=== PATIENT | male | born 1990 | race Caucasian/White ===

== ENCOUNTER 2016-11-11 15:04 | Inpatient (IN) | payer MEDICAID, OTHER ==
[~2016-11-11] VITALS: Ht 185.4 cm; Wt 97.6 kg
[2016-11-11 15:14] VITALS: BP 142/72; PULSE 72; RESP 16; TEMP 98.7; O2SAT 99
[2016-11-11 16:04] LABS: AUTOMATED NEUTROPHIL # 18.4 TH/MM3 (1.8-7.7); BASOPHIL # 0.1 TH/MM3 (0-0.2); BASOPHIL % 0.3 % (0.0-2.0); HEMATOCRIT 47.7 % (39.0-51.0); HEMO FLAGS DIFF FINAL; LYMPH % 4.9 % (9.0-44.0); MEAN CELL VOLUME 87.7 FL (80.0-100.0); MEAN CORPUSCULAR HEMOGLOBIN 29.2 PG (27.0-34.0); MEAN CORPUSCULAR HGB CONC 33.3 % (32.0-36.0); MONO % 2.9 % (0.0-8.0); NEUT % 91.9 % (16.0-70.0); PLATELET COUNT 282 TH/MM3 (150-450); RED BLOOD COUNT 5.44 MIL/MM3 (4.50-5.90); RED CELL DISTRIBUTION WIDTH 13.1 % (11.6-17.2)
[2016-11-11 16:35] LABS: BICARBONATE 27.5 MEQ/L (21.0-32.0); POTASSIUM 4.1 MEQ/L (3.5-5.1)
--- NOTE | 2016-11-11 17:15 | PD ---
HPI Chief Complaint: Numbness/Tingling Time Seen by Provider: 16:56 Travel History International Travel<30 days: No Contact w/Intl Traveler<30days: No Traveled to known affect area: No History of Present Illness HPI 26-year-old male complains of left-sided facial drooping and numbness, slurred speech, left arm left leg numbness and weakness. Patient states that the symptoms started yesterday morning. Patient states that he woke up with the symptoms. Patient was seen at [facility] in [facility] yesterday. Patient states that he had x-ray of the throat and given prescription for prednisone, hydroxyzine, and famotidine. Patient states that he had persistent symptom despite the medications. Patient denies headache. Patient denies any visual change. Patient denies any neck pain. Patient denies any chest pain or shortness of breath. Patient denies abdominal pain. Patient denies a history of TIA or CVA. Patient on Suboxone for the past 3 years. Patient denies any history of alcohol or illicit drug abuse recently. [facility] Social History Tobacco Use: No Allergies-Medications (Allergen,Severity, Reaction): Coded Allergies: Penicillin (Verified Allergy, Intermediate, HIVES, 11/11/16) Reported Meds & Prescriptions Reported Meds & Active Scripts Active Reported Miralax Powder (Polyethylene Glycol 3350 Powder) 17 Gm Powd 17 Gm PO EVERY OTHER DAY Mix and dissolve one measuring cap-ful (17 grams) in water or juice. Ranitidine (Ranitidine HCl) 150 Mg Tab 150 Mg PO DAILY Suboxone Sublingual Film (Buprenorphine-Naloxone Sublingual Film) 8-2 Mg Film 1 Film SL DAILY@0600 PRN Unique ID number required: Review of Systems General / Constitutional: No: Fever Eyes: No: Visual changes HENT: No: Headaches Cardiovascular: No: Chest Pain or Discomfort Respiratory: No: Shortness of Breath Gastrointestinal: No: Abdominal Pain Genitourinary: No: Dysuria Musculoskeletal: Positive: Weakness, No: Pain Skin: No Rash Neurologic: Positive: Paresthesia, No: Weakness Psychiatric: No: Depression Endocrine: No: Polydipsia Hematologic/Lymphatic: No: Easy Bruising Physical Exam Narrative GENERAL: Well-nourished, well-developed patient. SKIN: Focused skin assessment warm/dry. HEAD: Normocephalic. EYES: No scleral icterus. No injection or drainage. Pupils 3 mm equal reactive. NECK: Supple, trachea midline. No JVD or lymphadenopathy. No meningismus CARDIOVASCULAR: Regular rate and rhythm without murmurs, gallops, or rubs. RESPIRATORY: Breath sounds equal bilaterally. No accessory muscle use. GASTROINTESTINAL: Abdomen soft, non-tender, nondistended. MUSCULOSKELETAL: No cyanosis, or edema. BACK: Nontender without obvious deformity. No CVA tenderness. Neurologic exam: Patient has drooping on the left facial area but not involve the forehead. Patient had decrease in light touch sensation the left side of face. Patient has mild weakness of the left arm and left leg. Patient has mild decrease in light touch sensation left arm left leg. Deep tendon reflexes 2+ and equal. Negative Babinski. Data Data Last Documented VS Vital Signs Date Time Temp Pulse Resp B/P Pulse Ox O2 Delivery O2 Flow Rate FiO2 11/11/16 18:27 82 18 152/68 97 Nasal Cannula 2 11/11/16 15:14 98.7 Orders Complete Blood Count With Diff (11/11/16 15:30) Basic Metabolic Panel (Bmp) (11/11/16 15:30) Prothrombin Time / Inr (Pt) (11/11/16 15:30) Electrocardiogram (11/11/16 17:06) C-Reactive Protein (Crp) (11/11/16 17:06) Hepatic Functional Panel (11/11/16 17:06) Urinalysis - C+S If Indicated (11/11/16 17:06) Westergren Sedimentation Rate (11/11/16 17:06) Chest, Single Ap (11/11/16 17:06) Ct Brain W/O Iv Contrast(Rout) (11/11/16 17:06) Iv Access Insert/Monitor (11/11/16 17:06) Ecg Monitoring (11/11/16 17:06) Oxygen Administration (11/11/16 17:06) Oximetry (11/11/16 17:06) Drug Screen, Random Urine (11/11/16 17:06) Sodium Chlor 0.9% 1000 Ml Inj (Ns 1000 M (11/11/16 17:15) Aspirin (Aspirin) (11/11/16 18:30) Mri Brain W&W/O Contrast (11/11/16 18:32) Mra Brain W/O Contrast (Cow) (11/11/16 18:32) Mra Carotids W Contrast (11/11/16 18:32) Consult Neurology (11/11/16 ) (Hub Use Only)Inp Phy Cons/Ref (11/11/16 ) Admit Order (Ed Use Only) (11/11/16 19:19) Admit To Inpatient (11/11/16 ) Nih Stroke Scale - Nihss .On admission and discharge (11/11/16 19:18) Consult Pt Eval & Treat (11/11/16 19:18) Case Management Consult (11/11/16 ) Activity Bed Rest (11/11/16 19:18) Nursing Bedside Swallow Assess .ONCE (11/11/16 19:18) Diet Npo (11/12/16 Breakfast) Hemoglobin (Hgb) A1c (11/11/16 19:18) Lipid Profile (11/12/16 06:00) Us Carotid Arteries Comp Bilat (11/11/16 ) ^ Hold Medication (11/11/16 19:18) Consult Rehab Medicine (11/11/16 19:18) Rental Sales Associate / Telemetry [email or web address] (11/11/16 19:18) Consult Stoke Navigator (11/11/16 ) Inpatient Certification (11/11/16 ) Labs Laboratory Tests Test 11/11/16 11/11/16 11/11/16 15:34 18:00 18:30 White Blood Count 20.0 TH/MM3 Red Blood Count 5.44 MIL/MM3 Hemoglobin 15.9 GM/DL Hematocrit 47.7 % Mean Corpuscular Volume 87.7 FL Mean Corpuscular Hemoglobin 29.2 PG Mean Corpuscular Hemoglobin 33.3 % Concent Red Cell Distribution Width 13.1 % Platelet Count 282 TH/MM3 Mean Platelet Volume 8.5 FL Neutrophils (%) (Auto) 91.9 % Lymphocytes (%) (Auto) 4.9 % Monocytes (%) (Auto) 2.9 % Eosinophils (%) (Auto) 0.0 % Basophils (%) (Auto) 0.3 % Neutrophils # (Auto) 18.4 TH/MM3 Lymphocytes # (Auto) 1.0 TH/MM3 Monocytes # (Auto) 0.6 TH/MM3 Eosinophils # (Auto) 0.0 TH/MM3 Basophils # (Auto) 0.1 TH/MM3 CBC Comment DIFF FINAL Differential Comment Erythrocyte Sedimentation Rate 1 mm/hr Prothrombin Time 11.0 SEC Prothromb Time International 1.0 RATIO Ratio Sodium Level 138 MEQ/L Potassium Level 4.1 MEQ/L Chloride Level 102 MEQ/L Carbon Dioxide Level 27.5 MEQ/L Anion Gap 9 MEQ/L Blood Urea Nitrogen 16 MG/DL Creatinine 0.99 MG/DL Estimat Glomerular Filtration 91 ML/MIN Rate Random Glucose 107 MG/DL Calcium Level 9.7 MG/DL Urine Color YELLOW Urine Turbidity CLEAR Urine pH 6.5 Urine Specific [place] 1.026 Urine Protein TRACE mg/dL Urine Glucose (UA) NEG mg/dL Urine Ketones NEG mg/dL Urine Occult Blood NEG Urine Nitrite NEG Urine Bilirubin NEG Urine Urobilinogen LESS THAN 2.0 MG/DL Urine Leukocyte Esterase NEG Urine RBC LESS THAN 1 /hpf Urine WBC LESS THAN 1 /hpf Urine Mucus FEW /lpf Microscopic Urinalysis Comment CULT NOT INDICATED Urine Opiates Screen NEG Urine Barbiturates Screen NEG Urine Amphetamines Screen NEG Urine Benzodiazepines Screen NEG Urine Cocaine Screen NEG Urine Cannabinoids Screen NEG Total Bilirubin 1.2 MG/DL Direct Bilirubin 0.2 MG/DL Indirect Bilirubin 1.0 MG/DL Aspartate Amino Transf 10 U/L (AST/SGOT) Alanine Aminotransferase 19 U/L (ALT/SGPT) Alkaline Phosphatase 54 U/L C-Reactive Protein LESS THAN 0.29 MG/DL Total Protein 6.8 GM/DL Albumin 3.6 GM/DL [facility] Medical Decision Making Medical Screen Exam Complete: Yes Emergency Medical Condition: Yes Interpretation(s) Last Impressions Chest X-Ray 11/11/16 1706 Signed Impressions: Service Date/Time: Friday, November 11, 2016 17:03 - CONCLUSION: No acute disease. Aris Rios Jr., MD [address] scan of the brain shows low density right frontal lobe concerning for acute infarct. CBC with WBC 20,000. 91 neutrophil. Patient on steroid. BMP within normal limit. Differential Diagnosis Differential diagnosis including TIA, CVA, neuropathy. Narrative Course 26-year-old male with left-sided facial, left arm left leg numbness and weakness. Symptoms started yesterday morning. Normal saline solution 70 cc an hour. Head of bed flat. O2 2 L nasal cannula. Aspirin 325 mg by mouth given. Diagnosis Primary Impression: Acute CVA (cerebrovascular accident) Admitting Information Admitting Physician Requests: Admit Richie Boudreaux MD Nov 11, 2016 17:15
--- NOTE | 2016-11-11 17:41 | RADRPT ---
EXAM DATE/TIME: 11/11/2016 17:03 [facility] COMPARISON: No previous studies available for comparison. INDICATIONS : Short of breath. Left side motor function impaired. Minor headache. MEDICAL HISTORY : None. SURGICAL HISTORY : None. ENCOUNTER: Initial ACUITY: 1 day PAIN SCORE: 0/10 LOCATION: Bilateral chest FINDINGS: A single view of the chest demonstrates the lungs to be symmetrically aerated without evidence of mas s, infiltrate or effusion. The cardiomediastinal contours are unremarkable. Osseous structures are intact. CONCLUSION: No acute disease. Aris Rios Jr., MD on November 11, 2016 at 17:39 Board Certified Radiologist. This report was verified electronically.
--- NOTE | 2016-11-11 18:06 | RADRPT ---
EXAM DATE/TIME: 11/11/2016 17:45 [facility] COMPARISON: No previous studies available for comparison. INDICATIONS : Left sided numbness and slurred speech. RADIATION DOSE: 35.79 CTDIvol (mGy) MEDICAL HISTORY : None SURGICAL HISTORY : None. ENCOUNTER: Initial ACUITY: 1 day PAIN SCALE: 0/10 LOCATION: Bilateral head TECHNIQUE: Multiple contiguous axial images were obtained of the head. Using automated exposure control and adj ustment of the mA and/or kV according to patient size, radiation dose was kept as low as reasonably a chievable to obtain optimal diagnostic quality images. DICOM format image data is available electro nically for review and comparison. FINDINGS: CEREBRUM: Areas of low-density in the right frontal lobe which extends to the cortex, could be acute infarction . There is mass effect. The ventricles are normal for age. No evidence of midline shift, mass lesion , hemorrhage or acute infarction. No extra-axial fluid collections are seen. POSTERIOR FOSSA: The cerebellum and brainstem are intact. The 4th ventricle is midline. The cerebellopontine angle i s unremarkable. EXTRACRANIAL: The visualized portion of the orbits is intact. SKULL: The calvaria is intact. No evidence of skull fracture. CONCLUSION: 1. There is low-density in the right frontal lobe concerning for acute infarction. Contrasted MRI rec ommended. Amrit Du MD on November 11, 2016 at 18:03 Board Certified Radiologist. This report was verified electronically.
[2016-11-11 18:27] VITALS: BP 152/68; PULSE 82; RESP 18; O2SAT 97
[2016-11-11] MEDS ORDERED: ASPIRIN 325 MG TAB PO ONE (18:30)
[2016-11-11 18:43] LABS: BLOOD, URINE NEG (NEG); COMMENT (UR) CULT NOT INDICATED; CULTURE IF INDICATED CULT NOT INDICATED; GLUCOSE,URINE NEG (NEG); KETONE, URINE NEG (NEG); MUCUS URINE FEW /lpf (OCC); NITRITE,URINE NEG (NEG); PH, URINE 6.5 (5.0-8.5); URINE COLOR YELLOW (YELLW/STRAW)
[2016-11-11 18:53] LABS: AMPHETAMINE, URINE NEG (NEG); BARBITURATES, URINE NEG (NEG); COCAINE, URINE NEG (NEG)
[2016-11-11 19:06] LABS: ALT (GPT) 19 U/L (12-78); AST (GOT) 10 U/L (15-37)
[2016-11-11 19:09] LABS: ALKALINE PHOSPHATASE 54 U/L (45-117); TOTAL BILIRUBIN ADULT 1.2 MG/DL (0.2-1.0)
[2016-11-11] MEDS ORDERED: SODIUM CHLORIDE 0.9% FLUSH 10 ML FLUSH IV FLUSH PRN (19:30)
--- NOTE | 2016-11-11 19:49 | RADRPT ---
EXAM DATE/TIME: 11/11/2016 19:20 [facility] COMPARISON: No previous studies available for comparison. INDICATIONS : CVA. Left side numbness and weakness. MEDICAL HISTORY : None. SURGICAL HISTORY : None. ENCOUNTER: Subsequent ACUITY: 2 day PAIN SCORE: 3/10 LOCATION: cranial Please note a normal MRA of the brain does not entirely exclude the possibility of a small aneurysm, nor the possibility of distal intracranial vessel disease. TECHNIQUE: 3D time of flight MRA was performed. Source images, multiplanar STS MIP, and 3D volume MIP reconstru ctions were reviewed. FINDINGS: There is excellent visualization of the major intracranial arteries out to the second-order branch ve ssels. There is no evidence for aneurysm, vessel truncation or stenosis, and no evidence for vascula r malformation. Tiny anterior communicating artery. Hypoplastic posterior communicating arteries. Erika tebrobasilar junction normal. Basilar artery normal. CONCLUSION: 1. No large vessel stenosis or aneurysm. 2. Normal variants. Amrit Du MD on November 11, 2016 at 19:46 Board Certified Radiologist. This report was verified electronically.
[2016-11-11] MEDS ORDERED: GADODIAMIDE PF 287 MG/ML 20 ML VIAL (for RAD MRI) IV ONE (20:09)
[2016-11-11 20:17] VITALS: PULSE 62
--- NOTE | 2016-11-11 20:27 | RADRPT ---
EXAM DATE/TIME: 11/11/2016 19:20 [facility] COMPARISON: No previous studies available for comparison. INDICATIONS : CVA. Left side numbness and weakness. CONTRAST: 20 cc Omniscan (gadodiamide) IV MEDICAL HISTORY : None. SURGICAL HISTORY : None. ENCOUNTER: Subsequent ACUITY: 2 day PAIN SCORE: 3/10 LOCATION: cranial TECHNIQUE: Multiplanar, multisequence MRI of the brain was performed both prior to and following the administrat ion of paramagnetic contrast. FINDINGS: CEREBRUM: High flair abnormality right frontal lobe extensive cortex. The ventricles are normal for age. No ev idence of midline shift, mass lesion, hemorrhage or acute infarction. No extraaxial fluid collection s are seen. The pituitary gland and suprasellar cistern are normal in configuration. WHITE MATTER: No significant signal abnormalities are seen in the white matter. POSTERIOR FOSSA: The cerebellum and brainstem are intact. The 4th ventricle is midline. The cerebellopontine angle is unremarkable. The cerebellar tonsils are normal in position. DIFFUSION IMAGING: There is restricted diffusion in the right frontal lobe consistent with acute infarction. EXTRACRANIAL: The visualized portions of the orbits and paranasal sinuses are unremarkable. POST-CONTRAST: No abnormal areas of parenchymal or dural enhancement. No evidence of blood-brain barrier breakdown. CONCLUSION: Acute infarct right frontal lobe. No midline shift or mass effect. Amrit Du MD on November 11, 2016 at 20:24 Board Certified Radiologist. This report was verified electronically.
--- NOTE | 2016-11-11 20:36 | RADRPT ---
EXAM DATE/TIME: 11/11/2016 19:20 [facility] COMPARISON: No previous studies available for comparison. INDICATIONS : Stroke. Left side numbness and weakness. CONTRAST: 20 cc Omniscan (gadodiamide) IV MEDICAL HISTORY : None. SURGICAL HISTORY : None. ENCOUNTER: Subsequent ACUITY: 2 day PAIN SCORE: 3/10 LOCATION: cranial Percent stenosis is calculated using the diameter of the stenotic region over the diameter of the nor mal distal internal carotid artery. TECHNIQUE: Bolus infused MRA of the extracranial circulation was performed using a neurovascular coil. Post pro cessing was performed including rotating subvolume maximum intensity projections of each carotid irma ry, rotating full volume maximum intensity projections of both carotid arteries, sagittal and coronal sliding thin slab reformations of each carotid artery, and left oblique sliding thin slab reformatio n through the aortic arch to include the origin of the arch branch vessels. FINDINGS: AORTIC ARCH: There is a three vessel origin of the great vessels from the aorta. No evidence of ostial narrowing. RIGHT CAROTID: The common carotid artery is intact. The carotid bulb has a normal configuration without ulceration or narrowing. The internal carotid artery lumen is smooth without stenosis. The external carotid ar kristan is intact. LEFT CAROTID: The common carotid artery is intact. The carotid bulb has a normal configuration without ulceration or narrowing. The internal carotid artery lumen is smooth without stenosis. The external carotid ar kristan is intact. VERTEBRALS: The vertebral arteries have a symmetric diameter. No stenotic lesions are seen. CONCLUSION: Normal carotid arteries. Amrit Du MD on November 11, 2016 at 20:33 Board Certified Radiologist. This report was verified electronically.
[2016-11-11] MEDS: SODIUM CHLORIDE 0.9% FLUSH 10 ML FLUSH IV FLUSH SCH (21:00)
[2016-11-11 22:00] VITALS: BP 117/56; PULSE 62; RESP 16; O2SAT 100
[2016-11-11] MEDS: SODIUM CHLOR 0.9% 1000 ML INJ 1,000 ML IV SCH (22:00)
[2016-11-11 22:11] VITALS: BP 118/73; PULSE 60; O2SAT 100
[2016-11-11] MEDS ORDERED: SUBO8MIS SL (23:24)
[2016-11-11] MEDS ORDERED: RANI150T PO (23:25)
[2016-11-11] MEDS ORDERED: MIRA3350 PO (23:26)
--- NOTE | 2016-11-11 23:41 | RADRPT ---
EXAM DATE/TIME: 11/11/2016 22:38 [facility] COMPARISON: MRA CAROTIDS W CONTRAST, November 11, 2016, 19:20. INDICATIONS : Cerebrovascular accident. MEDICAL HISTORY : Left sided numbness. Slurred speech. Left sided weekness. SURGICAL HISTORY : None. ENCOUNTER: Initial ACUITY: 2 days PAIN SCORE: 0/10 LOCATION: Bilateral neck PEAK SYSTOLIC VELOCITIES (cm/sec): ICA/CCA RATIO: Right: 1.3 Left: 0.9 ICA: Right: 153.0 Left: 100.3 CCA: Right: 116.0 Left: 109.3 ECA: Right: 86.5 Left: 98.3 VERTEBRAL: Right: 66.1 antegrade Left: 44.9 antegrade Elevated flow velocities and ICA/CCA ratios have been found to correlate with increased degrees of vessel stenosis, calculated as percentage of diameter relative to a normal segment of distal ICA/CCA FINDINGS: RIGHT CAROTID: No significant stenosis is visualized. The waveforms are within normal limits. LEFT CAROTID: No significant stenosis is visualized. The waveforms are within normal limits. VERTEBRAL ARTERIES: Antegrade flow is seen in both vertebral arteries. MISCELLANEOUS: None. CONCLUSION: 1. Mildly elevated right internal carotid artery velocities. However, visually no stenosis is present and the earlier MRI demonstrates a normal appearance to the internal carotid artery. 2. Left internal carotid artery is normal without stenosis. 3. There is antegrade flow in both vertebral arteries. Yariel Miranda MD on November 11, 2016 at 23:37 Board Certified Radiologist. This report was verified electronically.
[2016-11-12] VITALS (8 sets, daily range): BP systolic 101–128; BP diastolic 54–71; PULSE 48–70; RESP 16–18; TEMP 97.3–98.4; O2SAT 97–100
[2016-11-12] MEDS: ASPIRIN EC 325 MG TABEC PO SCH (08:55)
[2016-11-12] MEDS: SODIUM CHLORIDE 0.9% FLUSH 10 ML FLUSH IV FLUSH SCH (08:55)
[2016-11-12] MEDS: SODIUM CHLOR 0.9% 1000 ML INJ 1,000 ML IV SCH (08:56)
--- NOTE | 2016-11-12 09:08 | HHI.HP ---
[facility] Service [facility] Primary Care Physician No Primary Care Physician Admission Diagnosis acute CVA Diagnoses: Chief Complaint: Left-sided numbness and weakness Travel History International Travel<30 Days: No Contact w/Intl Traveler <30 Da: No Traveled to Known Affected Are: No History of Present Illness 26-year-old male with a past medical history of tobacco dependence and narcotic dependence now on Suboxone who presented with left-sided numbness and weakness on Friday. Patient stated that symptoms did not improve so he went to the emergency department yesterday. Patient is a poor historian and does not give much of a history. He denies any other symptoms. Patient stated that numbness has improved drastically and weakness is mild at the moment. He did stated that his cousin at a young age had a stroke. Deny any family history of being hypercoagulable. Review of Systems Constitutional: DENIES: Diaphoretic episodes, Fatigue, Fever, Weight gain, Weight loss, Chills, Dizziness, Change in appetite, Night Sweats Endocrine: DENIES: Heat/cold intolerance, Polydipsia, Polyuria, Polyphagia Eyes: DENIES: Blurred vision, Diplopia, Eye inflammation, Eye pain, Vision loss , Photosensitivity, Double Vision Ears, nose, mouth, throat: DENIES: Tinnitus, Hearing loss, Vertigo, Nasal discharge, Oral lesions, Throat pain, Hoarseness, Ear Pain, Running Nose, Epistaxis, Sinus Pain, Toothache, Odynophagia Respiratory: DENIES: Apneas, Cough, Snoring, Wheezing, Hemoptysis, Sputum production, Shortness of breath Cardiovascular: DENIES: Chest pain, Palpitations, Syncope, Dyspnea on Exertion , PND, Lower Extremity Edema, Orthopnea, Claudication Gastrointestinal: DENIES: Abdominal pain, Black stools, Bloody stools, Constipation, Diarrhea, Nausea, Vomiting, Difficulty Swallowing, Anorexia Genitourinary: DENIES: Sexual dysfunction, Urinary frequency, Urinary incontinence, Urgency, Hematuria, Dysuria, Nocturia, Penile Discharge, Testicular Pain, Testicular Swelling Musculoskeletal: DENIES: Joint pain, Muscle aches, Stiffness, Joint Swelling, Back pain, Neck pain Integumentary: DENIES: Abnormal pigmentation, Nail changes, Pruritus, Rash Hematologic/lymphatic: DENIES: Bruising, Lymphadenopathy Immunologic/allergic: DENIES: Eczema, Urticaria Neurologic: COMPLAINS OF: Localized weakness, Paresthesias, DENIES: Abnormal gait, Headache, Seizures, Speech Problems, Tremor, Poor Balance Psychiatric: DENIES: Anxiety, Confusion, Mood changes, Depression, Hallucinations, Agitation, Suicidal Ideation, Homicidal Ideation, Delusions Past Family Social History Past Medical History Narcotic dependence GERD Past Surgical History Denying past surgical history. Reported Medications Miralax Powder (Polyethylene Glycol 3350 Powder) 17 Gm Powd 17 Gm PO EVERY OTHER DAY Mix and dissolve one measuring cap-ful (17 grams) in water or juice. Ranitidine (Ranitidine HCl) 150 Mg Tab 150 Mg PO DAILY Suboxone Sublingual Film (Buprenorphine-Naloxone Sublingual Film) 8-2 Mg Film 1 Film SL DAILY@0600 PRN Unique ID number required: Allergies: Coded Allergies: Penicillin (Verified Allergy, Intermediate, HIVES, 11/11/16) Active Ordered Medications Current Medications Sodium Chloride (NS 1000 ml Inj) 1,000 ml @ 70 mls/hr [id number] IV Last administered on 11/11/16 22:00; Start 11/11/16 at 17:15 Aspirin (Aspirin) 325 mg ONCE ONCE PO Last administered on 11/11/16 21:55; Start 11/11/16 at 18:30; Stop 11/11/16 at 18:31; Status DC Sodium Chloride (NS Flush) 2 ml BID IV FLUSH ; Start 11/11/16 at 21:00 Sodium Chloride (NS Flush) 2 ml UNSCH PRN IV FLUSH FLUSH AFTER USING IV ACCESS ; Start 11/11/16 at 19:30 Aspirin (Ecotrin Ec) 325 mg DAILY PO ; Start 11/12/16 at 09:00 Gadodiamide (Omniscan Pf Inj) 20 ml STK-MED ONCE IV Last administered on 20:09; Start 11/11/16 at 20:09; Stop 11/11/16 at 20:10; Status DC Family History Grandmother had a history of lung cancer. Grandfather had a history of unknown cancer. Cousin with a history of a stroke at a young age. Social History Patient was at home with his mother. Denied any alcohol use. Smokes half a pack a day for about 10 years. Patient has a history of narcotic-dependent dependence and is on Suboxone. Denied any history of IV drug use. Physical Exam Vital Signs Vital Signs Date Time Temp Pulse Resp B/P Pulse Ox O2 Delivery O2 Flow Rate FiO2 11/12/16 08:25 98.4 51 16 114/57 98 11/12/16 04:00 97.7 58 18 101/58 97 11/12/16 00:00 97.8 56 18 128/71 100 11/11/16 22:11 60 100 Room Air 11/11/16 22:11 55 18 118/73 100 11/11/16 22:00 62 16 117/56 100 Room Air 11/11/16 20:17 62 11/11/16 18:27 82 18 152/68 97 Nasal Cannula 2 11/11/16 17:20 98 Nasal Cannula 2 11/11/16 15:14 98.7 72 16 142/72 99 Room Air Physical Exam GENERAL: This is a well-nourished, well-developed patient, in no apparent distress. SKIN: No rashes, ecchymoses or lesions. Cool and dry. HEAD: Atraumatic. Normocephalic. No temporal or scalp tenderness. EYES: Pupils equal round and reactive. Extraocular motions intact. No scleral icterus. No injection or drainage. ENT: Nose without bleeding, purulent drainage or septal hematoma. Throat without erythema, tonsillar hypertrophy or exudate. Uvula midline. Airway patent. NECK: Trachea midline. No JVD or lymphadenopathy. Supple, nontender, no meningeal signs. CARDIOVASCULAR: Regular rate and rhythm without murmurs, gallops, or rubs. RESPIRATORY: Clear to auscultation. Breath sounds equal bilaterally. No wheezes , rales, or rhonchi. GASTROINTESTINAL: Abdomen soft, non-tender, nondistended. No hepato-splenomegaly , or palpable masses. No guarding. MUSCULOSKELETAL: Extremities without clubbing, cyanosis, or edema. No joint tenderness, effusion, or edema noted. No calf tenderness. Negative Homans sign bilaterally. NEUROLOGICAL: Awake and alert. Cranial nerves II through XII intact. Motor and sensory grossly within normal limits. Five out of 5 muscle strength in all muscle groups. Normal speech. Laboratory Laboratory Tests Test 11/11/16 11/11/16 11/11/16 15:34 18:00 18:30 White Blood Count 20.0 Red Blood Count 5.44 Hemoglobin 15.9 Hematocrit 47.7 Mean Corpuscular Volume 87.7 Mean Corpuscular Hemoglobin 29.2 Mean Corpuscular Hemoglobin 33.3 Concent Red Cell Distribution Width 13.1 Platelet Count 282 Mean Platelet Volume 8.5 Neutrophils (%) (Auto) 91.9 Lymphocytes (%) (Auto) 4.9 Monocytes (%) (Auto) 2.9 Eosinophils (%) (Auto) 0.0 Basophils (%) (Auto) 0.3 Neutrophils # (Auto) 18.4 Lymphocytes # (Auto) 1.0 Monocytes # (Auto) 0.6 Eosinophils # (Auto) 0.0 Basophils # (Auto) 0.1 CBC Comment DIFF FINAL Differential Comment Erythrocyte Sedimentation Rate 1 Prothrombin Time 11.0 Prothromb Time International 1.0 Ratio Sodium Level 138 Potassium Level 4.1 Chloride Level 102 Carbon Dioxide Level 27.5 Anion Gap 9 Blood Urea Nitrogen 16 Creatinine 0.99 Estimat Glomerular Filtration 91 Rate Random Glucose 107 Calcium Level 9.7 Urine Color YELLOW Urine Turbidity CLEAR Urine pH 6.5 Urine Specific [place] 1.026 Urine Protein TRACE Urine Glucose (UA) NEG Urine Ketones NEG Urine Occult Blood NEG Urine Nitrite NEG Urine Bilirubin NEG Urine Urobilinogen LESS THAN 2.0 Urine Leukocyte Esterase NEG Urine RBC LESS THAN 1 Urine WBC LESS THAN 1 Urine Mucus FEW Microscopic Urinalysis Comment CULT NOT INDICATED Urine Opiates Screen NEG Urine Barbiturates Screen NEG Urine Amphetamines Screen NEG Urine Benzodiazepines Screen NEG Urine Cocaine Screen NEG Urine Cannabinoids Screen NEG Total Bilirubin 1.2 Direct Bilirubin 0.2 Indirect Bilirubin 1.0 Aspartate Amino Transf 10 (AST/SGOT) Alanine Aminotransferase 19 (ALT/SGPT) Alkaline Phosphatase 54 C-Reactive Protein LESS THAN 0.29 Total Protein 6.8 Albumin 3.6 Result Diagram: 11/11/16 1534 11/11/16 1534 Imaging Last Impressions Neck Magnetic Resonance Angiography 11/11/161831 Signed Impressions: Service Date/Time: Friday, November 11, 2016 19:20 - CONCLUSION: Normal carotid arteries. Amrit Du MD Head Magnetic Resonance Angiography 11/11/161831 Signed Impressions: Service Date/Time: Friday, November 11, 2016 19:20 - CONCLUSION: 1. No large vessel stenosis or aneurysm. 2. Normal variants. Amrit Du MD Brain MRI 11/11/16 1832 Signed Impressions: Service Date/Time: Friday, November 11, 2016 19:20 - CONCLUSION: Acute infarct right frontal lobe. No midline shift or mass effect. Amrit Du MD Head CT 11/11/16 1706 Signed Impressions: Service Date/Time: Friday, November 11, 2016 17:45 - CONCLUSION: 1. There is low-density in the right frontal lobe concerning for acute infarction. Contrasted MRI recommended. Amrit Du MD Chest X-Ray 11/11/16 1706 Signed Impressions: Service Date/Time: Friday, November 11, 2016 17:03 - CONCLUSION: No acute disease. Aris Rios Jr., MD Carotid Artery Ultrasound 11/11/16 0000 Signed Impressions: Service Date/Time: Friday, November 11, 2016 22:38 - CONCLUSION: 1. Mildly elevated right internal carotid artery velocities. However, visually no stenosis is present and the earlier MRI demonstrates a normal appearance to the internal carotid artery. 2. Left internal carotid artery is normal without stenosis. 3. There is antegrade flow in both vertebral arteries. Yariel Miranda MD Assessment and Plan Problem List: (1) Acute CVA (cerebrovascular accident) ICD Code: I63.9 Status: Acute Assessment and Plan 26-year-old male with past medical history of tobacco dependence and narcotic dependence who presented with left-sided weakness and numbness Left-sided weakness and numbness -CT scan suggests possible CVA. -Patient was admitted to the neuro floor with a CVA workup. Neurologist consulted. -MRI of the head showed acute infarct right frontal lobe. No midline shift or mass effect. -Patient was put on CVA protocol. Allow permissive hypertension. -MRA, carotid ultrasound negative. Pending 2-D echo. Pending lipid panel and hemoglobin A1c. -Due to patients age will get a hypoechoic oval workup and urine drug screen. -Pending neurologist consult. Acute infarct right frontal lobe -See management as above. DVT prophylaxis -SCD Discussed Condition With patient Physician Certification 2 Midnight Certification Type: Admission for Inpatient Services Order for Inpatient Services The services are ordered in accordance with Medicare regulations or non- Medicare payer requirements, as applicable. In the case of services not specified as inpatient-only, they are appropriately provided as inpatient services in accordance with the 2-midnight benchmark. Estimated LOS (days): 2 2 days is the estimated time the patient will need to remain in the hospital, assuming treatment plan goals are met and no additional complications. Post-Hospital Plan: Estrella Snyder MD Nov 12, 2016 09:08
[2016-11-12] MEDS ORDERED: [UNRECOGNIZED DRUG - OTHER] SL PRN (09:45)
[2016-11-12] MEDS: FAMOTIDINE 20 MG TAB PO SCH ×2 (10:45→20:36)
[2016-11-12 10:58] LABS: AMPHETAMINE, URINE NEG (NEG); BARBITURATES, URINE NEG (NEG); COCAINE, URINE NEG (NEG)
[2016-11-12 11:28] LABS: HDL CHOLESTEROL 33.8 MG/DL (40.0-60.0)
--- NOTE | 2016-11-12 11:50 | EKG ---
Date Performed: 11/11/2016 Time Performed: 20:12:56 PTAGE: 26 years EKG: Sinus rhythm WITH FIRST DEGREE AV BLOCK ABNORMAL ECG NO PREVIOUS TRACING DOCTOR: Jai Gutierrez Interpretating Date/Time 11/12/2016 11:48:08
--- NOTE | 2016-11-12 12:51 | MB ---
cc: ENEDINA LUJAN M.D. DATE OF CONSULTATION: 11/12/2016 DATE OF : 1990 REASON FOR CONSULTATION Stroke. HISTORY OF PRESENT ILLNESS The patient a 26-year-old man visiting from [place] with a history of smoking and drug abuse on Suboxone. He was in his usual state of health when on Friday started having some numbness, weakness, predominantly in the face and the left arm. He did not improve. He came to the ER yesterday. Denies any other symptoms currently. He was taken for an MRI of the brain that confirmed an acute right frontal stroke. His mother is on the telephone while I am interviewing Adal. She states that there is no immediate family history of a young person with a stroke nor any hypercoagulable history nor any cardiac disease such as a PFO. PAST MEDICAL HISTORY The patient's past medical history is as described above plus reflux. PAST SURGICAL HISTORY Denies. MEDICATIONS Home medicines are: 1. MiraLax as needed. 2. Ranitidine. 3. Suboxone. ALLERGIES PENICILLIN. SOCIAL HISTORY He lives at home with his mother. Denies any current alcohol use. Smokes a half pack a day for the last 10 years. History of narcotic dependence and is on Suboxone. No IV drugs by history. FAMILY HISTORY Grandmother had lung cancer. Grandfather unknown type of cancer. He does state that there is a cousin with a stroke at a young age but not immediate family. PHYSICAL EXAMINATION VITAL SIGNS: Temperature 98.4, pulse 51, respiratory rate 16, blood pressure 114/57. NECK: Supple. No appreciable bruits. HEART: Regular. LUNGS: Appear clear. NEUROLOGIC: He is awake, alert. He is oriented and fluent. Pupils are reactive. Left face asymmetry. Tongue midline. Facial sensation is normal. Motor-walker he does not exhibit any significant weakness, 5/5 biceps, triceps, as well as distal strength of the left. No leg lag. Toes withdraws. DTRs are brisk throughout. Sensory is normal. Cerebellar no past-pointing. Gait is withheld at this time. IMAGING MRI does confirm an acute right frontal lobe infarct. MRA kenaitze of [place]: No large vessel occlusion. No aneurysm. Carotid MRA was normal. LABORATORY Sed rate is 1. White count 20.0 with neutrophils 91.9 on admission. Coag panel was normal. Chemistries unremarkable, glucose 107. Hemoglobin A1c is pending as are his lipids. C-reactive protein was normal. Toxicology was for the immediate screen was negative yesterday. It is redone today. UA: Few mucus, but otherwise not nothing else found. IMPRESSION Acute right frontal lobe infarct in a 26-year-old male with no significant history except for drug use on Suboxone. RECOMMENDATIONS At this point will obtain a lipid panel, hemoglobin A1c, hypercoagulable panel and a 2-D echo. Placed him on aspirin therapy. Maintain him on telemetry for any dysrhythmia. Depending on findings he may need to have a cardiology consult if his work-up is negative for evaluation of a PFO as well. Will have PT, TO and speech therapy evaluate him. Discharge planning hopefully in the next 24-48 hours. His mother states that once he is discharged she wants him back in [place] and will take him to a neurology center there. Current recommendations as outlined. Enedina Lujan MD DF/BT /10:54 AM /12:41 PM
[2016-11-12 16:03] LABS: HEMOGLOBIN A1a 1.1 %; HEMOGLOBIN A1b 1.6 %; HEMOGLOBIN Ao 86.1 %; HEMOGLOBIN LA1C 1.8 %; HEMOGLOBIN P3 3.6 %
--- NOTE | 2016-11-12 19:47 | PD.CONS ---
HPI Service Rehabilitation Medicine Consult Requested By Dr. Stacy Reason for Consult Comprehensive rehabilitation evaluation. Primary Care Physician No Primary Care Physician History of Present Illness Adal Espinosa is a 26 year old right hand dominant male admitted to [facility] 11/11/16 with left facial droop/slurred speech and left LE weakness. Head CT showed low attenuation right frontal lobe. Brain MRI showed right frontal infarct. MRA neck and head negative. Review of Systems Constitutional: DENIES: Fatigue Eyes: DENIES: Diplopia Respiratory: DENIES: Shortness of breath Cardiovascular: DENIES: Chest pain Gastrointestinal: DENIES: Abdominal pain Genitourinary: DENIES: Urinary incontinence Musculoskeletal: DENIES: Back pain Integumentary: DENIES: Rash Hematologic/lymphatic: DENIES: Bruising Neurologic: COMPLAINS OF: Localized weakness, Paresthesias, Speech Problems, DENIES: Headache, Seizures Psychiatric: DENIES: Confusion Past Family Social History Allergies: Coded Allergies: Penicillin (Verified Allergy, Intermediate, HIVES, 11/11/16) Past Medical History Opiate abuse on Suboxone GERD Past Surgical History None listed Current Medications Current Medications Medications (Trade) Dose Ordered Sig/Hilary Route Start Time Stop Time Status Last Admin (NS 1000 ml Inj) 1,000 ml @ 70 mls/hr [id number] IV 11/11/16 17:15 11/12/16 08:56 (NS Flush) 2 ml BID IV FLUSH 11/11/16 21:00 11/12/16 08:55 (NS Flush) 2 ml UNSCH PRN IV FLUSH 11/11/16 19:30 (Ecotrin Ec) 325 mg DAILY PO 11/12/16 09:00 11/12/16 08:55 Patient Own Medication PT OWN MED: (Buprenorphine-Naloxo... DAILY@0600 PRN SL 11/12/16 09:45 (Pepcid) 20 mg BID PO 11/12/16 10:00 11/12/16 10:45 Family History Mother alive and healthy Father alive and HTN Social History Lives in [place] with family. 1/2 pack tobacco per day for 10 years. Denies ETOH Exam I&O / VS 11/11/16 11/11/16 11/12/16 14:59 22:59 06:59 Intake Total 532 ml Balance 532 ml Intake IV Total 532 ml Vital Signs Date Time Temp Pulse Resp B/P Pulse Ox O2 Delivery O2 Flow Rate FiO2 11/12/16 15:50 97.5 53 16 101/59 97 11/12/16 11:46 97.3 70 16 127/65 99 11/12/16 08:25 98.4 51 16 114/57 98 11/12/16 08:05 49 11/12/16 04:00 97.7 58 18 101/58 97 11/12/16 00:00 97.8 56 18 128/71 100 11/11/16 22:11 60 100 Room Air 11/11/16 22:11 55 18 118/73 100 11/11/16 22:00 62 16 117/56 100 Room Air 11/11/16 20:17 62 General: No acute distress Respiratory: Lungs CTA, Non-labored respirations, BS equal Gastrointestinal: Positive Bowel Sounds, Non-Distended, Non-Tender Cardiovascular: Normal rate, Normal peripheral perfusion, Regular Rhythm Skin: Other (No rash noted) Musculoskeletal: Swelling (None in LE) Psychiatric: Cooperative, Appropriate mood & affect Orientation: oriented to Self, oriented to Place, oriented to Time, oriented to Situation Neurologic: Pupils (PERRLA), Visual Van (Intact to confrontation), Speech ( Mild dysarthria) Motor: Right Upper Extremity (5/5), Left Upper Extremity (5/5), Right Lower Extremity (5/5), Left Lower Extremity (4+/5) Spasticity Decreased by 50% in left UE and 25 % in left LE DTRs: Normal Babinski: Negative Clonus: Negative Assessment and Plan Diagnosis: (1) Acute CVA (cerebrovascular accident) Assessment 1. Right frontal CVA with dysarthria and left sensory impairment 2. GERD 3. Opiate abuse on Suboxone Plan 1. PT mobilizing and independent with transfers and gait 200 feet no device 2. OT for ADL's and SBA 3. ST for swallow and tolerating regular diet with thin liquids 4. Case management working with patient and family on return to home in [place]. Would continue outpatient ST for speech and cognition 5. Will follow while hospitalized Thank you for this consult. Yanira Jhaveri MD Nov 12, 2016 19:47
[2016-11-13] VITALS (9 sets, daily range): BP systolic 110–126; BP diastolic 52–76; PULSE 51–70; RESP 18–20; TEMP 97.8–98.6; O2SAT 96–100
[2016-11-13] MEDS: SODIUM CHLOR 0.9% 1000 ML INJ 1,000 ML IV SCH ×2 (01:00→02:13)
[2016-11-13] MEDS: ASPIRIN EC 325 MG TABEC PO SCH (08:41)
[2016-11-13] MEDS: SODIUM CHLORIDE 0.9% FLUSH 10 ML FLUSH IV FLUSH SCH ×2 (08:42→20:54)
[2016-11-13] MEDS: FAMOTIDINE 20 MG TAB PO SCH ×2 (08:42→20:53)
--- NOTE | 2016-11-13 14:29 | HHI.PR ---
Subjective Remarks No complaints Had PT eval today and 2Decho. hypercoag labs still pending. Objective Vital Signs Date Time Temp Pulse Resp B/P Pulse Ox O2 Delivery O2 Flow Rate FiO2 11/13/16 12:17 98.1 64 18 122/59 99 11/13/16 08:09 98.6 57 18 122/59 98 11/13/16 04:00 97.9 53 18 126/76 96 11/13/16 00:00 98.2 64 18 110/52 97 11/12/16 20:00 98.3 48 18 108/54 97 11/12/16 15:50 97.5 53 16 101/59 97 I/O 11/12/16 11/12/16 11/12/16 11/13/16 11/13/16 11/13/16 06:59 14:59 22:59 06:59 14:59 22:59 Intake Total 532 ml 808 ml Balance 532 ml 808 ml Intake IV Total 532 ml 808 ml # Voids 3 4 1 # Bowel Movements 0 awake alert mild dysarthria perrla no facial droop motor 5/5 all 4 extrem. dtrs 2+ Result Diagram: 11/11/16 1534 11/11/16 1534 Imaging mri brain ac right frontal inf. mra cow neg cus neg echo pending results hypercoag labs pending cholesterol 146,tg 161,ldl 80hdl 33.8 Assessment and Plan Assessment and Plan right frontal stroke w/u in progress hypercoag labs and echo stable if cleared by PT can be d/c on aspirin and f/u with in [place]. Enedina Lujan MD Nov 13, 2016 14:29
--- NOTE | 2016-11-13 15:14 | HHI.PR ---
Subjective Remarks Follow-up for stroke. Patient states that he feels almost fully recovered, denies any worsening or recurring neurological deficits. Tolerating by mouth intake well. In good spirits. Echo results are still pending. Objective Vital Signs Date Time Temp Pulse Resp B/P Pulse Ox O2 Delivery O2 Flow Rate FiO2 11/13/16 12:17 98.1 64 18 122/59 99 11/13/16 08:09 98.6 57 18 122/59 98 11/13/16 04:00 97.9 53 18 126/76 96 11/13/16 00:00 98.2 64 18 110/52 97 11/12/16 20:00 98.3 48 18 108/54 97 11/12/16 15:50 97.5 53 16 101/59 97 I/O 11/12/16 11/12/16 11/12/16 11/13/16 11/13/16 11/13/16 07:00 15:00 23:00 07:00 15:00 23:00 Intake Total 532 ml 808 ml Balance 532 ml 808 ml Intake IV Total 532 ml 808 ml # Voids 3 4 1 # Bowel Movements 0 Result Diagram: 11/11/16 1534 11/11/16 1534 Other Results Laboratory Tests Test 11/11/16 11/11/16 11/11/16 11/12/16 15:34 18:00 18:30 10:17 White Blood Count 20.0 TH/MM3 (4.0-11.0) Neutrophils (%) (Auto) 91.9 % (16.0-70.0) Lymphocytes (%) (Auto) 4.9 % (9.0-44.0) Neutrophils # (Auto) 18.4 TH/MM3 (1.8-7.7) Random Glucose 107 MG/DL (74-106) Urine Mucus FEW /lpf (OCC) Total Bilirubin 1.2 MG/DL (0.2-1.0) Indirect Bilirubin 1.0 MG/DL (0.0-0.8) Aspartate Amino Transf 10 U/L (15-37) (AST/SGOT) Triglycerides Level 161 MG/DL (42-150) HDL Cholesterol 33.8 MG/DL (40.0-60.0) Objective Remarks Physical exam Gen.: No acute distress Respiratory: Clear to auscultation bilaterally, unlabored Cardia vascular: Regular rate and rhythm, no murmurs Abdomen: Soft, distended , Neurological: Patellar DTRs bilaterally +2, cranial nerves II through XII grossly intact, negative Romberg, intact finger to nose bilaterally and intact [id number] bilaterally Musculoskeletal: Follow 5 proximal muscle strength in upper and bilateral lower extremities Medications and IVs Inpatient Medications Aspirin (Aspirin) 325 mg ONCE ONCE PO Last administered on 11/11/16 21:55; Start 11/11/16 at 18:30; Stop 11/11/16 at 18:31; Status DC Aspirin (Ecotrin Ec) 325 mg DAILY PO Last administered on 11/13/16 08:41; Start 11/12/16 at 09:00 Famotidine (Pepcid) 20 mg BID PO Last administered on 11/13/16 08:42; Start at 10:00 Patient Own Medication PT OWN MED: (Buprenorphine-Naloxo... DAILY@0600 PRN SL WITHDRAWAL; Start 11/12/16 at 09:45 Polyethylene Glycol (Miralax) 17 gm EVERY OTHER DAY PO ; Start 11/14/16 at 09: 00 Sodium Chloride (NS 1000 ml Inj) 1,000 ml @ 70 mls/hr [id number] IV Last administered on 11/13/16 01:00; Start 11/11/16 at 17:15 Sodium Chloride (NS Flush) 2 ml UNSCH PRN IV FLUSH FLUSH AFTER USING IV ACCESS ; Start 11/11/16 at 19:30 A/P Problem List: (1) Acute CVA (cerebrovascular accident) ICD Code: I63.9 Assessment & Plan: 26-year-old white male admitted with an acute CVA Acute CVA - premature for age, neurology consulted and appreciated recommendations, lipid profile showing depleted HDL. Hypercoagulable labs still pending. Continues to 25 mg aspirin and starting atorvastatin. Waiting on 2-D echo results Reported Meds & Active Scripts Active Reported Miralax Powder (Polyethylene Glycol 3350 Powder) 17 Gm Powd 17 Gm PO EVERY OTHER DAY Mix and dissolve one measuring cap-ful (17 grams) in water or juice. Ranitidine (Ranitidine HCl) 150 Mg Tab 150 Mg PO DAILY Suboxone Sublingual Film (Buprenorphine-Naloxone Sublingual Film) 8-2 Mg Film 1 Film SL DAILY@0600 PRN Unique ID number required: . Clinically wall recovered in stable with no further therapy recommendations from physical nor occupational therapy further assessments. Jared Bone MD Nov 13, 2016 15:14
[2016-11-13] MEDS: ATORVASTATIN 40 MG TAB PO SCH (20:53)
--- NOTE | 2016-11-13 21:41 | ECHRPT ---
Indication: CVA/TIA CONCLUSIONS Normal left ventricular size and wall thickness. The left ventricular systolic function is normal wi th an estimated ejection fraction in the range of 60-65%. Left ventricular diastolic function parameters a re normal. There is trace tricuspid valve regurgitation. The estimated pulmonary arterial pressure is 22 mmHg. BP: 101 / 58 HR: 58 Rhythm: Sinus Technical Quality:Good FINDINGS LEFT VENTRICLE Normal left ventricular size and wall thickness. The left ventricular systolic function is normal wi th an estimated ejection fraction in the range of 60-65%. Left ventricular diastolic function parameters a re normal. RIGHT VENTRICLE Normal right ventricular size and systolic function. LEFT ATRIUM The left atrial size is normal. RIGHT ATRIUM The right atrial size is normal. ATRIAL SEPTUM Normal atrial septal thickness without atrial level shunting by limited color doppler interrogation. AORTA The aortic root and proximal ascending aorta are normal in size on limited imaging. MITRAL VALVE Structurally normal mitral valve. No mitral valve stenosis or regurgitation. AORTIC VALVE Trileaflet aortic valve. No aortic valve stenosis or regurgitation. TRICUSPID VALVE There is trace tricuspid valve regurgitation. The estimated pulmonary arterial pressure is 22 mmHg. PULMONARY VALVE The pulmonary valve is not well visualized. VESSELS The inferior vena cava is normal in size. PERICARDIUM No pericardial effusion. Ash Love MD, FACC (Electronically Signed) Final Date:13 November 2016 21:41
[2016-11-14] VITALS (7 sets, daily range): BP systolic 109–131; BP diastolic 56–74; PULSE 49–77; RESP 16–20; TEMP 97.7–98.1; O2SAT 98–100
[2016-11-14] MEDS: SODIUM CHLOR 0.9% 1000 ML INJ 1,000 ML IV SCH (02:27)
[2016-11-14] MEDS ORDERED: POLYETHYLENE GLYCOL 17 GM PKG PO SCH (09:00)
[2016-11-14] MEDS: SODIUM CHLORIDE 0.9% FLUSH 10 ML FLUSH IV FLUSH SCH ×2 (10:23→21:00)
[2016-11-14] MEDS: ASPIRIN EC 325 MG TABEC PO SCH (10:23)
[2016-11-14] MEDS: FAMOTIDINE 20 MG TAB PO SCH (10:23)
[2016-11-14 11:33] LABS: TOTAL BILIRUBIN ADULT 2.3 MG/DL (0.2-1.0)
--- NOTE | 2016-11-14 13:42 | HHI.PR ---
Subjective Remarks Follow-up for stroke. Patient says he feels well. Echo appears to be wnl. V/S stable. Noted slight elevation in bilirubin, repeat levels show increase. not clinically jaundiced. Objective Vital Signs Date Time Temp Pulse Resp B/P Pulse Ox O2 Delivery O2 Flow Rate FiO2 11/14/16 13:16 98.1 66 18 119/72 99 11/14/16 08:22 98.0 77 17 118/65 98 11/14/16 04:00 97.9 60 20 117/56 99 11/14/16 00:00 98.1 62 20 119/74 98 11/13/16 20:00 97.8 70 20 115/65 100 11/13/16 19:00 51 11/13/16 16:15 97.8 61 19 112/71 99 11/13/16 15:00 56 I/O 11/13/16 11/13/16 11/13/16 11/14/16 11/14/16 11/14/16 06:59 14:59 22:59 06:59 14:59 22:59 Intake Total 480 ml 240 ml Balance 480 ml 240 ml Intake Oral 480 ml 240 ml # Voids 4 1 4 2 # Bowel Movements 0 0 Result Diagram: 11/11/16 1534 11/11/16 1534 Imaging Last Impressions Neck Magnetic Resonance Angiography 11/11/161831 Signed Impressions: Service Date/Time: Friday, November 11, 2016 19:20 - CONCLUSION: Normal carotid arteries. Amrit Du MD Head Magnetic Resonance Angiography 11/11/161831 Signed Impressions: Service Date/Time: Friday, November 11, 2016 19:20 - CONCLUSION: 1. No large vessel stenosis or aneurysm. 2. Normal variants. Amrit Du MD Brain MRI 11/11/161831 Signed Impressions: Service Date/Time: Friday, November 11, 2016 19:20 - CONCLUSION: Acute infarct right frontal lobe. No midline shift or mass effect. Amrit Du MD Head CT 11/11/161705 Signed Impressions: Service Date/Time: Friday, November 11, 2016 17:45 - CONCLUSION: 1. There is low-density in the right frontal lobe concerning for acute infarction. Contrasted MRI recommended. Amrit Du MD Chest X-Ray 7/24/17 1706 Signed Impressions: Service Date/Time: Friday, November 11, 2016 17:03 - CONCLUSION: No acute disease. Aris Rios Jr., MD Carotid Artery Ultrasound 11/11/16 0000 Signed Impressions: Service Date/Time: Friday, November 11, 2016 22:38 - CONCLUSION: 1. Mildly elevated right internal carotid artery velocities. However, visually no stenosis is present and the earlier MRI demonstrates a normal appearance to the internal carotid artery. 2. Left internal carotid artery is normal without stenosis. 3. There is antegrade flow in both vertebral arteries. Yariel Miranda MD Objective Remarks Physical exam Gen.: No acute distress Respiratory: Clear to auscultation bilaterally, unlabored Cardia vascular: Regular rate and rhythm, no murmurs Abdomen: Soft, distended , Neurological: no facial droop, no slurred speech, MSK: grossly intact ROM of 4 ext Medications and IVs Inpatient Medications Aspirin (Aspirin) 325 mg ONCE ONCE PO Last administered on 11/11/16 21:55; Start 11/11/16 at 18:30; Stop 11/11/16 at 18:31; Status DC Aspirin (Ecotrin Ec) 325 mg DAILY PO Last administered on 11/14/16 10:23; Start 11/12/16 at 09:00 Atorvastatin Calcium (Lipitor) 40 mg HS PO Last administered on 11/13/16 20:53 ; Start 11/13/16 at 21:00 Famotidine (Pepcid) 20 mg BID PO Last administered on 11/14/16 10:23; Start at 10:00 Patient Own Medication PT OWN MED: (Buprenorphine-Naloxo... DAILY@0600 PRN SL WITHDRAWAL; Start 11/12/16 at 09:45 Polyethylene Glycol (Miralax) 17 gm EVERY OTHER DAY PO ; Start 11/14/16 at 09: 00 Sodium Chloride (NS 1000 ml Inj) 1,000 ml @ 70 mls/hr [id number] IV Last administered on 11/13/16 01:00; Start 11/11/16 at 17:15 Sodium Chloride (NS Flush) 2 ml UNSCH PRN IV FLUSH FLUSH AFTER USING IV ACCESS ; Start 11/11/16 at 19:30 A/P Problem List: (1) Acute CVA (cerebrovascular accident) ICD Code: I63.9 Assessment & Plan: 26-year-old white male admitted with an acute CVA Acute CVA - premature for age, clnically recovered. Neurology consulted and appreciated recommendations. 2D echo wnl, bubble study ordered. Started lipitor , continuing aspirin. hypercoagulable labs to return w/ results likely after discharge. hyperbilirubinemia (indirect) - ordering cbc, ldh, retic count, and haptoglobin to eval for hemolysis. Possible d/c today if basic heme workup is unremarkable. Reported Meds & Ac Inpatient Medications Aspirin (Aspirin) 325 mg ONCE ONCE PO Last administered on 11/11/16 21:55; Start 11/11/16 at 18:30; Stop 11/11/16 at 18:31; Status DC Aspirin (Ecotrin Ec) 325 mg DAILY PO Last administered on 11/14/16 10:23; Start 11/12/16 at 09:00 Atorvastatin Calcium (Lipitor) 40 mg HS PO Last administered on 11/13/16 20:53 ; Start 11/13/16 at 21:00 Famotidine (Pepcid) 20 mg BID PO Last administered on 11/14/16 10:23; Start at 10:00 Patient Own Medication PT OWN MED: (Buprenorphine-Naloxo... DAILY@0600 PRN SL WITHDRAWAL; Start 11/12/16 at 09:45 Polyethylene Glycol (Miralax) 17 gm EVERY OTHER DAY PO ; Start 11/14/16 at 09: 00 Sodium Chloride (NS 1000 ml Inj) 1,000 ml @ 70 mls/hr [id number] IV Last administered on 11/13/16 01:00; Start 11/11/16 at 17:15 Sodium Chloride (NS Flush) 2 ml UNSCH PRN IV FLUSH FLUSH AFTER USING IV ACCESS ; Start 11/11/16 at 19:30 Jared Perez MD Nov 14, 2016 13:41
[2016-11-14 15:11] LABS: AUTOMATED NEUTROPHIL # 6.7 TH/MM3 (1.8-7.7); BASOPHIL % 0.2 % (0.0-2.0); EOSINOPHIL # 0.1 TH/MM3 (0-0.4); EOSINOPHIL % 1.3 % (0.0-4.0); HEMATOCRIT 41.4 % (39.0-51.0); HEMO FLAGS DIFF FINAL; LYMPH % 21.7 % (9.0-44.0); MEAN CELL VOLUME 87.1 FL (80.0-100.0); MEAN CORPUSCULAR HGB CONC 34.5 % (32.0-36.0); MONO % 5.3 % (0.0-8.0); NEUT % 71.5 % (16.0-70.0); PLATELET COUNT 239 TH/MM3 (150-450); RED BLOOD COUNT 4.75 MIL/MM3 (4.50-5.90); RED CELL DISTRIBUTION WIDTH 12.8 % (11.6-17.2); RETIC % 1.2 % (0.4-3.0); REVIEW FLAG FINAL; WHITE BLOOD COUNT 9.4 TH/MM3 (4.0-11.0)
--- NOTE | 2016-11-14 17:35 | ECHRPT ---
Indication: Transient cerebral ischemic attack, unspecified CONCLUSIONS This was focused study of the interatrial septum. By color flow there is a suggestion of a PFO. The bubble study fails to opacify the right atrium - the most likely reason might be a left arm injection with a left-sided superior vena cava - repeat bubble study from the right arm or GRACIELA would be more diagnostic. On thi s study no bubbles are seen crossing into the left atrium so a PFO cannot be confirmed. BP: / HR: 77 Rhythm: Technical Quality:Fair Jai Gutierrez MD (Electronically Signed) Final Date:14 November 2016 17:34
[2016-11-15 00:08] VITALS: BP 130/79; PULSE 58; RESP 16; TEMP 97.7; O2SAT 99
[2016-11-15] MEDS: FAMOTIDINE 20 MG TAB PO SCH ×2 (00:08→12:12)
[2016-11-15] MEDS: ATORVASTATIN 40 MG TAB PO SCH (00:08)
[2016-11-15 00:10] VITALS: PULSE 75
[2016-11-15 04:00] VITALS: BP 124/76; PULSE 64; RESP 18; TEMP 97.9; O2SAT 97
[2016-11-15 08:00] VITALS: BP 122/74; PULSE 76; RESP 18; TEMP 97.6; O2SAT 100
[2016-11-15] MEDS: SODIUM CHLORIDE 0.9% FLUSH 10 ML FLUSH IV FLUSH SCH (09:00)
--- NOTE | 2016-11-15 10:39 | HHI.PR ---
Subjective Remarks Follow-up for stroke. Patient says he feels well. Does not appear clinically jaundiced. Objective Vital Signs Date Time Temp Pulse Resp B/P Pulse Ox O2 Delivery O2 Flow Rate FiO2 11/15/16 08:00 97.6 76 18 122/74 100 11/15/16 04:00 97.9 64 18 124/76 97 11/15/16 00:10 75 11/15/16 00:08 97.7 58 16 130/79 99 11/14/16 21:28 97.8 71 18 131/69 99 11/14/16 16:26 97.7 72 16 109/66 100 11/14/16 13:46 49 11/14/16 13:16 98.1 66 18 119/72 99 I/O 11/14/16 11/14/16 11/14/16 11/15/16 11/15/16 11/15/16 07:00 15:00 23:00 07:00 15:00 23:00 Intake Total 240 ml Balance 240 ml Intake Oral 240 ml # Voids 2 2 # Bowel Movements 0 0 Result Diagram: 11/14/16 1410 11/11/16 1534 Imaging Reported Meds & Active Scripts Active Reported Miralax Powder (Polyethylene Glycol 3350 Powder) 17 Gm Powd 17 Gm PO EVERY OTHER DAY Mix and dissolve one measuring cap-ful (17 grams) in water or juice. Ranitidine (Ranitidine HCl) 150 Mg Tab 150 Mg PO DAILY Suboxone Sublingual Film (Buprenorphine-Naloxone Sublingual Film) 8-2 Mg Film 1 Film SL DAILY@0600 PRN Unique ID number required: Last Impressions Neck Magnetic Resonance Angiography 11/11/161831 Signed Impressions: Service Date/Time: Friday, November 11, 2016 19:20 - CONCLUSION: Normal carotid arteries. Amrit Du MD Head Magnetic Resonance Angiography 11/11/161831 Signed Impressions: Service Date/Time: Friday, November 11, 2016 19:20 - CONCLUSION: 1. No large vessel stenosis or aneurysm. 2. Normal variants. Amrit Du MD Brain MRI 11/11/161831 Signed Impressions: Service Date/Time: Friday, November 11, 2016 19:20 - CONCLUSION: Acute infarct right frontal lobe. No midline shift or mass effect. Amrit Du MD Head CT 11/11/161705 Signed Impressions: Service Date/Time: Friday, November 11, 2016 17:45 - CONCLUSION: 1. There is low-density in the right frontal lobe concerning for acute infarction. Contrasted MRI recommended. Amrit Du MD Chest X-Ray 11/11/161705 Signed Impressions: Service Date/Time: Friday, November 11, 2016 17:03 - CONCLUSION: No acute disease. Aris Rios Jr., MD Carotid Artery Ultrasound 11/11/16 0000 Signed Impressions: Service Date/Time: Friday, November 11, 2016 22:38 - CONCLUSION: 1. Mildly elevated right internal carotid artery velocities. However, visually no stenosis is present and the earlier MRI demonstrates a normal appearance to the internal carotid artery. 2. Left internal carotid artery is normal without stenosis. 3. There is antegrade flow in both vertebral arteries. Yariel Miranda MD Objective Remarks Physical exam Gen.: No acute distress Respiratory: Clear to auscultation bilaterally, unlabored Cardia vascular: Regular rate and rhythm, no murmurs Abdomen: Soft, distended , Neurological: no facial droop, no slurred speech, MSK: grossly intact ROM of 4 ext Medications and IVs Inpatient Medications Aspirin (Aspirin) 325 mg ONCE ONCE PO Last administered on 11/11/16 21:55; Start 11/11/16 at 18:30; Stop 11/11/16 at 18:31; Status DC Aspirin (Ecotrin Ec) 325 mg DAILY PO Last administered on 11/14/16 10:23; Start 11/12/16 at 09:00 Atorvastatin Calcium (Lipitor) 40 mg HS PO Last administered on 11/15/16 00:08 ; Start 11/13/16 at 21:00 Famotidine (Pepcid) 20 mg BID PO Last administered on 11/15/16 00:08; Start at 10:00 Patient Own Medication PT OWN MED: (Buprenorphine-Naloxo... DAILY@0600 PRN SL WITHDRAWAL; Start 11/12/16 at 09:45 Polyethylene Glycol (Miralax) 17 gm EVERY OTHER DAY PO ; Start 11/14/16 at 09: 00 Sodium Chloride (NS 1000 ml Inj) 1,000 ml @ 70 mls/hr [id number] IV Last administered on 11/13/16 01:00; Start 11/11/16 at 17:15 Sodium Chloride (NS Flush) 2 ml UNSCH PRN IV FLUSH FLUSH AFTER USING IV ACCESS ; Start 11/11/16 at 19:30 A/P Problem List: (1) Acute CVA (cerebrovascular accident) ICD Code: I63.9 Assessment & Plan: 26-year-old white male admitted with an acute CVA Acute CVA - premature for age, clnically recovered. Neurology consulted and appreciated recommendations. Continue aspirin and Lipitor. 2D echo wnl, bubble study is indeterminate of a PFO. As a result, Dr. Shah and cardiology has been consulted for ultimate recommendations for best imaging and/or management if PFO is found. Otherwise patient is clinically stable for discharge. hyperbilirubinemia (indirect) -repeat CBC retake count and haptoglobin are all unremarkable. Elevation is mild at best Disposition is that the patient is clinically stable for discharge pending cardiology's final recommendations. Reported Meds & Ac Inpatient Medications Aspirin (Aspirin) 325 mg ONCE ONCE PO Last administered on 11/11/16 21:55; Start 11/11/16 at 18:30; Stop 11/11/16 at 18:31; Status DC Aspirin (Ecotrin Ec) 325 mg DAILY PO Last administered on 11/14/16 10:23; Start 11/12/16 at 09:00 Atorvastatin Calcium (Lipitor) 40 mg HS PO Last administered on 11/13/16 20:53 ; Start 11/13/16 at 21:00 Famotidine (Pepcid) 20 mg BID PO Last administered on 11/14/16 10:23; Start at 10:00 Patient Own Medication PT OWN MED: (Buprenorphine-Naloxo... DAILY@0600 PRN SL WITHDRAWAL; Start 11/12/16 at 09:45 Polyethylene Glycol (Miralax) 17 gm EVERY OTHER DAY PO ; Start 11/14/16 at 09: 00 Sodium Chloride (NS 1000 ml Inj) 1,000 ml @ 70 mls/hr [id number] IV Last administered on 11/13/16 01:00; Start 11/11/16 at 17:15 Sodium Chloride (NS Flush) 2 ml UNSCH PRN IV FLUSH FLUSH AFTER USING IV ACCESS ; Start 11/11/16 at 19:30 Jared Perez MD Nov 15, 2016 10:39
[2016-11-15 12:00] VITALS: BP 125/76; PULSE 79; RESP 18; TEMP 96.6; O2SAT 96
[2016-11-15] MEDS: ASPIRIN EC 325 MG TABEC PO SCH (12:12)
--- NOTE | 2016-11-15 13:27 | MB ---
cc: ROSA KEBEDE DATE OF CONSULTATION 11/15/2016 DATE OF 1990 REASON FOR CONSULTATION Evaluation for GRACIELA in the setting of a recent CVA. HISTORY OF PRESENT ILLNESS 26-year-old male with a previous cardiovascular history from [place]. He presented to the hospital with sudden onset of numbness, weakness primarily in the face and left arm. He was taken for MRI of the brain that confirmed acute right frontal stroke, thus he was admitted for further management and evaluation in the hospital. CT and MRI confirmed the evidence of an infarct. Carotid ultrasound was unremarkable. Echocardiogram showed a normal EF without any evidence of shunt, thus cardiology has been consulted for GRACIELA in the setting of a young male with a stroke without an identifiable etiology. PAST MEDICAL HISTORY 1. Smoking, drug abuse. 2. GERD PAST SURGICAL HISTORY None HOME MEDICATIONS 1. MiraLax 2. Ranitidine 3. Suboxone ALLERGIES PENICILLIN FAMILY HISTORY No history of PFO stroke in the family. SOCIAL HISTORY He is a chronic smoker. Is narcotic dependent and is on Suboxone. He denies IV drug use. PHYSICAL EXAM VITAL SIGNS: Temperature 97, respiratory rate 18, heart rate 76, blood pressure 122/74, O2 sat 100% percent on room air. GENERAL: Awake, alert, and oriented in no acute distress. NECK: No JVD, no carotid bruits. HEART: Regular rate and rhythm. No murmurs, rubs or gallops. LUNGS: Clear to auscultation bilaterally. No rhonchi, wheezes or rales. ABDOMEN: Soft, nontender, nondistended. Positive bowel sounds. EXTREMITIES: No cyanosis or edema. Pulses throughout. DATA CBC hemoglobin 14, hematocrit 41, platelet count was 239, INR 1. Chemistries, sodium 138, potassium 4.1, creatinine 0.99, BUN 16, triglycerides 161, HDL 33. Urinalysis unremarkable. Toxicology screen negative. IMAGING STUDIES As above. EKG done, normal sinus rhythm with a first degree block. There are two Transthoracic echocardiograms, the first one now describing the presence of a PFO and the second one which was a limited echo focusing on the intraatrial septum and concluded it was suggestive of PFO with a negative bubble study. ASSESSMENT/PLAN A 26-year-old male smoker who is admitted with a CVA consulted for GRACIELA to rule out PFO. I agree with the need for a GRACIELA to further visualize the intraatrial septal and the bubble study. Risk benefits have been explain to patient and he is willing to proceed. RECOMMENDATIONS Keep NPO for GRACIELA today. The case has been discussed with the attending of record. Thank you for the opportunity to participate in the care of this patient. Further therapy to be determined. MD MESERET Chun/FERDINAND /11:17 AM /1:08 PM MTDSher
[2016-11-15 15:54] VITALS: BP 124/69; PULSE 74; RESP 18; TEMP 98.7; O2SAT 98
[2016-11-15] MEDS ORDERED: ASPI325T33 PO (16:21)
[2016-11-15] MEDS ORDERED: ATOR40TA16 PO (16:21)
--- NOTE | 2016-11-15 16:23 | HHI.DCPOC ---
Discharge Care Plan Diagnosis: (1) Acute CVA (cerebrovascular accident) Additional Problems Stay away from smoking and drinking alcohol. Goals to Promote Your Health * To prevent worsening of your condition and complications * To maintain your health at the optimal level Directions to Meet Your Goals Take your medications as prescribed Follow your dietary instruction Follow activity as directed Keep your appointments as scheduled Take your immunizations and boosters as scheduled If your symptoms worsen call your PCP, if no PCP go to Urgent Care Center or Emergency Room Smoking is Dangerous to Your Health. Avoid second hand smoke Call the 24-hour hour crisis hotline for domestic abuse at Jared Bone MD Nov 15, 2016 16:23
--- NOTE | 2016-11-15 16:53 | HHI.DS ---
Discharge Summary Admission Date Nov 11, 2016 at 19:21 Discharge Date: Nov 15, 2016 Admitting Diagnosis acute CVA of right frontal lobe (1) Acute CVA (cerebrovascular accident) ICD Code: I63.9 Diagnosis: Principal Procedures Last Impressions Neck Magnetic Resonance Angiography 11/11/161831 Signed Impressions: Service Date/Time: Friday, November 11, 2016 19:20 - CONCLUSION: Normal carotid arteries. Amrit Du MD Head Magnetic Resonance Angiography 11/11/161831 Signed Impressions: Service Date/Time: Friday, November 11, 2016 19:20 - CONCLUSION: 1. No large vessel stenosis or aneurysm. 2. Normal variants. Amrit Du MD Brain MRI 11/11/161831 Signed Impressions: Service Date/Time: Friday, November 11, 2016 19:20 - CONCLUSION: Acute infarct right frontal lobe. No midline shift or mass effect. Amrit Du MD Head CT 11/11/161705 Signed Impressions: Service Date/Time: Friday, November 11, 2016 17:45 - CONCLUSION: 1. There is low-density in the right frontal lobe concerning for acute infarction. Contrasted MRI recommended. Amrit Du MD Chest X-Ray 11/11/161705 Signed Impressions: Service Date/Time: Friday, November 11, 2016 17:03 - CONCLUSION: No acute disease. Aris Rios Jr., MD Carotid Artery Ultrasound 11/11/16 0000 Signed Impressions: Service Date/Time: Friday, November 11, 2016 22:38 - CONCLUSION: 1. Mildly elevated right internal carotid artery velocities. However, visually no stenosis is present and the earlier MRI demonstrates a normal appearance to the internal carotid artery. 2. Left internal carotid artery is normal without stenosis. 3. There is antegrade flow in both vertebral arteries. Yariel Miranda MD Brief History - From Admission 26-year-old male with a past medical history of tobacco dependence and narcotic dependence now on Suboxone who presented with left-sided numbness and weakness on Friday. Patient stated that symptoms did not improve so he went to the emergency department yesterday. Patient is a poor historian and does not give much of a history. He denies any other symptoms. Patient stated that numbness has improved drastically and weakness is mild at the moment. He did stated that his cousin at a young age had a stroke. Deny any family history of being hypercoagulable. CBC/BMP: 11/14/16 1410 11/11/16 1534 Significant Findings Laboratory Tests Test 11/12/16 11/14/16 11/14/16 22:10 10:02 14:10 Homocysteine (Cardiovascular) 12.0 umol/L (<11.4) Total Bilirubin 2.3 MG/DL (0.2-1.0) Direct Bilirubin 0.3 MG/DL (0.0-0.2) Indirect Bilirubin 2.0 MG/DL (0.0-0.8) Neutrophils (%) (Auto) 71.5 % (16.0-70.0) PE at Discharge Vital signs: Reviewed, normotensive, normal pulse Gen.: No acute distress Respiratory: Clear to auscultation bilaterally, unlabored breathing Cardiovascular: Regular rhythm, no murmurs, Abdomen: Soft distended Neurological: No facial droop, no slurred speech, no focal deficits noted Musculoskeletal: Grossly intact 5 out of 5 proximal muscle strength in bilateral upper and lower extremities Hospital Course Patient was admitted to the floor. MRI obtained confirmed an acute right frontal lobe infarction. Neurology was consulted given the patient's premature age for such an incident. Carotid workup was negative. Echocardiogram with bubble study was questionable for such a lesion, cardiology was consulted and transesophageal echo showed a PFO but did not show a shunt. Cardiology recommended medical management, no need for PFO closure at this time. Neurology recommended 325 mg aspirin daily and for patient to follow up with cardiology and neurology outpatient. Rehabilitation did evaluate the patient and cleared him for discharge without any follow-up therapy with the exception of speech therapy since patient did report having some frustration with slowed answering to end up questions - which she stated did get better by the time of discharge. Patient was instructed to follow with his PCP can sure he gets evaluated for speech therapy since this was deemed beneficial. Patient was instructed to ensure that he takes his aspirin and his cholesterol medication everyday to follow-up with his PCP promptly along with a neurologist and material analyst within a months time. He was instructed to have his PCP and his subspecialists to request final results of records of hypercoagulable lab workup which was initially obtained here. Patient vocalized understanding. At this point the patient has met maximum benefit from hospitalization and is clinically stable for discharge from neurology standpoint, cardiology standpoint and hospitalist overall care. Pt Condition on Discharge: Good Discharge Disposition: Discharge Home Discharge Time: > 30 minutes Discharge Instructions DIET: Follow Instructions for: As Tolerated, No Restrictions Speech Therapy-Diet Recommends: Regular Additional Diet Instructions: reg diet + thin liquids Activities you can perform: Regular-No Restrictions Follow up Referrals: Cardiology - 3 Weeks Neurology - 2 Weeks PCP Follow-up New Orders: Speech Therapy New Medications: Aspirin DR (Aspirin EC) 325 Mg Tabdr 325 MG PO DAILY Stroke Prevention #30 TAB Atorvastatin (Atorvastatin) 40 Mg Tab 40 MG PO HS Stroke Prevention #30 TAB Continued Medications: Buprenorphine-Naloxone Sublingual Film (Suboxone Sublingual Film) 8-2 Mg Film 1 FILM SL DAILY@0600 Unique ID number required: PRN WITHDRAWAL FILM Polyethylene Glycol 3350 Powder (Miralax Powder) 17 Gm Powd 17 GM PO EVERY OTHER DAY Mix and dissolve one measuring cap-ful (17 grams) in water or juice. Constipation #1 Ref 0 CAN Ranitidine (Ranitidine) 150 Mg Tab 150 MG PO DAILY Heartburn Management #30 Ref 0 TAB Jared Bone MD Nov 15, 2016 16:53
[2016-11-15] MEDS ORDERED: ATORVASTATIN 40 MG TAB PO ONE (17:00)
--- NOTE | 2016-11-15 17:37 | HHI.PR ---
Subjective Subjective Comments Patient awake and alert. Father at bedside. Patient/father reports that patient is at baseline except for mild word finding difficulty. Allergies: Coded Allergies: Penicillin (Verified Allergy, Intermediate, HIVES, 11/11/16) Review of Systems All other ROS: ROS reviewed as documented in chart Exam I&O / VS 11/14/16 11/14/16 11/15/16 14:59 22:59 06:59 Intake Total 240 ml Balance 240 ml Intake Oral 240 ml # Voids 2 2 # Bowel Movements 0 0 Vital Signs Date Time Temp Pulse Resp B/P Pulse Ox O2 Delivery O2 Flow Rate FiO2 11/15/16 15:54 98.7 74 18 124/69 98 11/15/16 12:00 96.6 79 18 125/76 96 11/15/16 08:00 97.6 76 18 122/74 100 11/15/16 04:00 97.9 64 18 124/76 97 11/15/16 00:10 75 11/15/16 00:08 97.7 58 16 130/79 99 11/14/16 21:28 97.8 71 18 131/69 99 General: No acute distress Cardiovascular: Normal rate Skin: Other (No rash noted) Musculoskeletal: Swelling (None in LE) Psychiatric: Cooperative, Appropriate mood & affect Orientation: oriented to Self, oriented to Place, oriented to Time, oriented to Situation Neurologic: EOM (intact), Facial Symmetry (symmetric), Speech (Occasional word finding difficulty) Motor: Right Upper Extremity (5/5; no ulnar drift), Left Upper Extremity (5/5) , Right Lower Extremity (5/5), Left Lower Extremity Sensory Intact to light touch in both upper and lower extremities Balance: Gait (steady on a level surface without an assistive device) Assessment and Plan Diagnosis: (1) Acute CVA (cerebrovascular accident) Assessment 1. Right frontal CVA with dysarthria and left sensory impairment 2. GERD 3. Opiate abuse on Suboxone Plan 1. Patient is able to transfer independently and gait is steady on a level surface without an assistive device 2. OT addressing ADLs and patient is standby 3. ST has evaluated swallow and tolerating regular diet with thin liquids. 4. Case management working with patient and family on return to home in [place]. Discussed with patient's father and would recommend follow-up with primary care for assistance with ongoing outpatient ST for cognition 5. Discussed with the patient that he is not cleared to drive until he follows up with his primary care physician. Patient's father will also follow-up with primary care physician regarding patient returning to work. Yanira Jhaveri MD Nov 15, 2016 17:37
--- NOTE | 2016-11-15 22:50 | ECHRPT ---
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 No pericardial effusion BP: / HR: Rhythm: Technical Quality: Medications Complications Proc. Components Richard Neri MD (Electronically Signed) Final Date:15 November 2016 22:48
[2016-11-18 09:52] LABS: BETA2 GLYCOPROTEIN I AB IGA LESS THAN 9.0 SAU (< OR = 20)
[2016-11-18 19:50] LABS: PHOSPHATIDYLSERINE AB IGA LESS THAN 20.0 U/mL (()); PHOSPHATIDYLSERINE AB IGM LESS THAN 25.0 U/mL (())
== END 2016-11-15 17:58 | disposition home or self-care (01) | DRG 65 ==
LOC: NEPD 15:04 → NEDA 19:21 → N05A 22:23
PROVIDERS: ADMIT Family Medicine; ATTEND Family Medicine
PROC: B24BZZ4 Ultrasonography of Heart with Aorta, Transesophageal (ICD-10-PCS; principal; 2016-11-15)
DX: I63.8 Other cerebral infarction (principal); F11.20 Opioid dependence, uncomplicated; R17 Unspecified jaundice; G81.94 Hemiplegia, unspecified affecting left nondominant side; F17.210 Nicotine dependence, cigarettes, uncomplicated; K21.9 Gastro-esophageal reflux disease without esophagitis; R29.810 Facial weakness; R47.1 Dysarthria and anarthria
CPT/HCPCS: 70450; 70544; 70548; 70553; 71010; 80048; 80061; 80076; 80307; 81001; 81240; 81241; 83010; 83036; 83090; 83615; 85025; 85044; 85300; 85303; 85306; 85307; 85610; 85613; 85652; 85730; 86140; 86146; 86147; 86148; 93005; 93306; 93308; 93312; 93320; 93325; 93880; A9579; J7030